=== PATIENT | male | born 1950 | race Caucasian/White ===

== ENCOUNTER 2023-08-26 06:50 | Outpatient (CLI) | payer MEDICARE ==
[2023-08-26 08:19] LABS: BASOPHILS # (AUTO) 0.1 10^3/uL (0.0-0.1); BASOPHILS % (AUTO) 0.9 %; EOSINOPHILS # (AUTO) 0.2 10^3/uL (0.0-0.7); EOSINOPHILS % (AUTO) 2.5 %; HCT - HEMATOCRIT 55.4 % (42.0-52.0); HGB - HEMOGLOBIN 17.7 g/dL (14.0-18.0); LYMPHOCYTES # (AUTO) 1.7 10^3/uL (1.5-3.5); LYMPHOCYTES % (AUTO) 21.8 %; MEAN CORPUSCULAR HEMOGLOBIN 28.2 pg (27.0-31.0); MEAN CORPUSCULAR HGB CONC 31.9 g/dL (32.0-36.0); MEAN CORPUSCULAR VOLUME 88.4 fL (80.0-94.0); MEAN PLATELET VOLUME 9.5 fL (7.4-11.4); MONOCYTES # (AUTO) 0.7 10^3/uL (0.0-1.0); NEUTROPHILS # (AUTO) 5.2 10^3/uL (1.5-6.6); NEUTROPHILS % (AUTO) 65.7 %; PLT - PLATELET COUNT 288 10^3/uL (130-450); RED BLOOD COUNT 6.27 10^6/uL (4.70-6.10); RED CELL DISTRIBUTION WIDTH 13.7 % (12.0-15.0)
[2023-08-26 08:42] LABS: ALBUMIN/GLOBULIN RATIO 1.5 (1.0-2.2); ALKALINE PHOSPHATASE 77 IU/L (42-121); ALT ALANINE AMINOTRANSFERASE 11 IU/L (10-60); AST ASPARTATE AMINOTRANSFERASE 14 IU/L (10-42); BILIRUBIN,TOTAL 1.5 mg/dL (0.2-1.0); BUN - BLOOD UREA NITROGEN 14 mg/dL (6-20); CALCIUM 9.2 mg/dL (8.5-10.3); CARBON DIOXIDE - CO2 28 mmol/L (21-32); CHLORIDE 103 mmol/L (101-111); CHOL/HDL RATIO 3.1 (<5.0); CHOLESTEROL 175 mg/dL; GFR - MDRD 73 (>89); GLUCOSE 99 mg/dL (74-104); HDL CHOLESTEROL 57 mg/dL; LDL CHOLESTEROL,CALCULATED 106 mg/dL; LDL/HDL RATIO 1.9 (<3.6); POTASSIUM 4.3 mmol/L (3.5-4.5); SODIUM 134 mmol/L (135-145); TOTAL PROTEIN 6.7 g/dL (6.4-8.9); TRIGLYCERIDES 62 mg/dL (48-352); VLDL CHOLESTEROL 12 mg/dL
[2023-08-26 08:54] LABS: THYROID STIMULATING HORMONE 2.15 uIU/mL (0.34-5.60)
--- NOTE | 2023-08-26 13:22 | Ultrasound Report ---
PROCEDURE: [facility] (Retro[facility] INDICATIONS: AAA TECHNIQUE: Real-time scanning was performed of the abdominal aorta and iliac vessels, with image documentation. COMPARISON: None available at the time of dictation. FINDINGS: Aorta: Aorta is not well seen secondary to bowel gas and measures approximately 2.7 cm. Mid aorta measures a pproximately 3 x 2.7 cm with mural plaque. Distal aorta measures 1.7 x 1.8 cm. Iliac vessels: Right common iliac artery measures 1.2 x 1.2 cm. Left common iliac measures 1 x 1.1 cm . IMPRESSION: 1.Evaluation of the proximal abdominal aorta is limited secondary to bowel gas and measures approxima tely 2.7 cm. 2.Mid abdominal aortic aneurysm measuring 3 x 2.7 cm with mural plaque. Recommend repeat ultrasound i n 3 years. 3.Bilateral common iliac arteries are normal in caliber, where visualized. Recommended intervals for follow-up imaging of ectatic aortas and abdominal aortic aneurysms, per ACR consensus guidelines: 2.5-2.9 cm: 5 years 3.0-3.4 cm: 3 years 3.5-3.9 cm: 2 years 4.0-4.4 cm: 1 year 4.5-4.9 cm: 6 months + endovascular referral 5.0-5.5 cm: 3-6 months + endovascular referral Reviewed by: Ely Singh MD on 08/26/2023 1:21 PM PST Approved by: Ely Singh MD on 08/26/2023 1:21 PM PST Station ID: [id number]
== END 2023-08-26 06:51 | disposition home or self-care (01) ==
LOC: DI 06:50
PROVIDERS: ATTEND Physician Assistant
DX: I71.40 Abdominal aortic aneurysm, without rupture, unspecified (principal); I70.0 Atherosclerosis of aorta; R03.0 Elevated blood-pressure reading, without diagnosis of hypertension; Z13.220 Encounter for screening for lipoid disorders; Z12.5 Encounter for screening for malignant neoplasm of prostate
CPT/HCPCS: 36415; 80053; 80061; 83721; 84153; 84443; 85025

== ENCOUNTER 2023-08-26 07:28 | Outpatient (CLI) | payer MEDICARE ==
--- NOTE | 2023-08-26 13:25 | XRAY Report ---
PROCEDURE: Knee 4+V LT INDICATIONS: LEFT KNEE PX, CHRONIC TECHNIQUE: 4 views of the knee(s) were acquired. COMPARISON: None. FINDINGS: Bones: Left knee: No fractures or dislocations. Moderate medial and mild lateral and patellofemoral compart ment joint space narrowing and juxta-articular osteophytosis. No suspicious bony lesions. Limited views of the right knee demonstrate mild medial and lateral compartment joint space narrowing . Soft tissues: No knee joint effusion. No suspicious soft tissue calcifications or masses. IMPRESSION: 1.No acute bony abnormality. 2.[id number] tricompartmental osteoarthritis of the left knee, moderate in the medial compartme nt. 3.Mild medial and lateral compartment osteoarthritis of the right knee. Reviewed by: Ely Singh MD on 08/26/2023 1:23 PM PST Approved by: Ely Singh MD on 08/26/2023 1:23 PM PST Station ID: [id number]
== END 2023-08-26 07:29 | disposition home or self-care (01) ==
LOC: DI 07:28
PROVIDERS: ATTEND Physician Assistant
DX: M17.0 Bilateral primary osteoarthritis of knee (principal); I71.40 Abdominal aortic aneurysm, without rupture, unspecified; I70.0 Atherosclerosis of aorta; R03.0 Elevated blood-pressure reading, without diagnosis of hypertension; Z13.220 Encounter for screening for lipoid disorders; Z12.5 Encounter for screening for malignant neoplasm of prostate
CPT/HCPCS: 36415; 73564; 76775; 80053; 80061; 84443; 85025; G0103; 83721; 84153